=== PATIENT | male | born 1940 | race Caucasian/White ===

== ENCOUNTER → 2017-09-07 | Outpatient (CLI) | payer MEDICARE ==
[~2017-09-07] MED LIST: ASPI81 PO; ASPI81TA23 PO; BYST2.5T2 PO; CARD4TAB2 PO; FINA5TAB2 PO; LOSA100T PO; LOSA25TA31 PO; NEBI20 PO; OMEP20CA5 PO; OMEP20TA93 PO; TAMS0.4C4 PO
[2017-09-07 11:03] LABS: HEMATOCRIT 46.5 % (39.0-51.0); MEAN CELL VOLUME 82.2 FL (80.0-100.0); MEAN CORPUSCULAR HEMOGLOBIN 26.6 PG (27.0-34.0); MEAN CORPUSCULAR HGB CONC 32.4 % (32.0-36.0); MEAN PLATELET VOLUME 10.7 FL (7.0-11.0); PLATELET COUNT 170 TH/MM3 (150-450); RED BLOOD COUNT 5.65 MIL/MM3 (4.50-5.90); RED CELL DISTRIBUTION WIDTH 14.3 % (11.6-17.2); WHITE BLOOD COUNT 7.8 TH/MM3 (4.0-11.0)
[2017-09-07 11:14] LABS: PROTHROMBIN TIME - PATIENT 9.9 SEC (9.8-11.6)
[2017-09-07 11:31] LABS: BICARBONATE 28.8 MEQ/L (21.0-32.0); CREATININE 1.33 MG/DL (0.60-1.30)
--- NOTE | 2017-09-07 17:59 | EKG ---
Date Performed: 09/07/2017 Time Performed: 10:20:32 PTAGE: 77 years EKG: SINUS BRADYCARDIA RIGHT BUNDLE BRANCH BLOCK ABNORMAL ECG Since the previous tracing, no sig nificant change noted NO PREVIOUS TRACING DOCTOR: Madisyn Ritter Interpretating Date/Time 09/07/2017 17:57:41
== END ==
LOC: CPRE 09:43
PROVIDERS: ATTEND Internal Medicine
DX: Z01.812 Encounter for preprocedural laboratory examination (principal); Z01.810 Encounter for preprocedural cardiovascular examination; R91.1 Solitary pulmonary nodule; R00.1 Bradycardia, unspecified; I45.10 Unspecified right bundle-branch block
CPT/HCPCS: 36415; 80048; 85027; 85610; 85730; 93005

== ENCOUNTER 2017-09-11 12:33 | Day surgery (SDC) | payer MEDICARE ==
[~2017-09-11] VITALS: Ht 170.2 cm; Wt 90.9 kg
--- NOTE | 2017-09-11 09:20 | MB ---
cc: Rachid Harding MD DATE: 09/11/2017 HISTORY OF PRESENT ILLNESS: Mr. Lepe is a 77-year-old white male whom I saw recently with intermittent wheezing and a left lower lobe infiltrate, possibly associated with an endobronchial lesion. He is being scheduled for bronchoscopy for evaluation of this abnormality. The patient's only complaint is intermittent wheezing and an occasional cough. He had a similar-appearing chest x-ray about 2 years ago, but was lost to followup. Since that time, he has not had any interval respiratory illness. No fever, no hemoptysis, no weight loss. He was a former smoker of about 20 pack years, but quit in the 1960s. PAST MEDICAL HISTORY: Hypertension, BPH, reflux disease, diabetes and an abdominal aortic aneurysm. PAST SURGICAL HISTORY: He has had a distant vasectomy. ALLERGIES: VINNIE INHIBITORS, DEPAKOTE AND THE FLU SHOT. MEDICATIONS: 1. Losartan. 2. Bystolic. 3. Omeprazole. 4. Finasteride. 5. Tamsulosin. 6. A baby aspirin, which was held on his last appointment in early August. FAMILY HISTORY: Strong history on father's side. Mother in her 90s, probably of heart disease. Three daughters in good health. SOCIAL HISTORY: The patient was born in [facility]. He moved to this country at the age of 5; lived most of his life in [place]. He has been in this area now for about 10 years. He is a retired immigration officer. Smoking as noted above. No excessive alcohol use. REVIEW OF SYSTEMS: Other than that noted above, no musculoskeletal complaints. No persistent fever. No chronic edema. No significant dyspnea. PHYSICAL EXAMINATION: VITAL SIGNS: 98 degrees, 120/70, pulse 60, RR 18, saturation 97% on room air. HEENT: Sclerae are anicteric. Pharynx is clear. NECK: Neck veins are flat. LYMPH: No adenopathy in the neck, supraclavicular region. CHEST: No audible wheezing or congestion, regular rhythm. No harsh murmur. EXTREMITIES: No peripheral edema or cyanosis. DISCUSSION: Mr. Lepe presents with a persistent abnormality of the left base with a possible endobronchial lesion noted. We will proceed with diagnostic bronchoscopy for further evaluation. I have explained to the patient the procedure in simple terms so that he understands what it involves. We have also discussed possible complications including although not limited to anesthetic complications, bleeding, or pneumothorax. He is agreeable to proceed. Aspirin has been held. Further diagnostic and/or therapeutic intervention will depend on results of this initial diagnostic study. R. MD HERBERT Aguilera/NICOLAS , 09:02 AM , 09:20 AM
[~2017-09-11 12:33] MED LIST changes: -ASPI81 PO; -BYST2.5T2 PO; -CARD4TAB2 PO; -LOSA25TA31 PO; -OMEP20CA5 PO
[2017-09-11 12:55] VITALS: BP 157/72; PULSE 49; RESP 18; TEMP 98.3; O2SAT 98
[2017-09-11] MEDS ORDERED: CHLORHEXIDINE GLUCONATE 2 % 1 PACK (2 CLOTHS) TOPICAL PRN (13:45)
[2017-09-11] MEDS ORDERED: METOPROLOL TARTRATE 25 MG TAB PO PRN (13:45)
[2017-09-11] MEDS ORDERED: INSULIN HUMAN REGULAR 1,000 UNITS/10 ML VIAL SQ PRN (13:45)
[2017-09-11] MEDS ORDERED: RESP: ALBUTEROL 2.5 MG/3 ML NEB (SCH) INH (13:45)
[2017-09-11] MEDS ORDERED: SODIUM CHLORID 0.9% 500 ML IV PRN (13:45)
[2017-09-11] MEDS ORDERED: SODIUM CHLORIDE 0.9% INJ 100 ML IV SCH (13:45)
[2017-09-11] MEDS ORDERED: POVIDONE IODINE 5% (ANTISEPSIS KIT) 4 APPLICATIONS EACH NARE PRN (13:45)
[2017-09-11] MEDS ORDERED: LACTATED RINGER'S 1000 ML IV PRN (13:45)
[2017-09-11] MEDS ORDERED: RESP: LIDOCAINE HCL 4% PF 5 ML NEB NEB SCH (13:45)
[2017-09-11] MEDS ORDERED: RESP: ALBUTEROL CONC 2.5 MG/0.5 ML NEB ONE (15:35)
[2017-09-11] MEDS ORDERED: SUGAMMADEX SODIUM 200 MG/2 ML VIAL IV PUSH ONE ×2 (16:23→16:27)
[2017-09-11] MEDS ORDERED: RESP: ALBUTEROL 2.5 MG/3 ML NEB (PRN) NEB (16:30)
[2017-09-11] MEDS ORDERED: *RESP: ALBUTEROL 2.5 MG/3 ML NEB (PRN) PERIprocedural Use ONLY NEB ONE (16:45)
--- NOTE | 2017-09-11 16:46 | MR ---
cc: Rachid Harding MD DATE: 09/11/2017 PROCEDURE PERFORMED: Bronchoscopy. INDICATION FOR PROCEDURE: Possible endobronchial lesion in the left lower lobe. DESCRIPTION OF PROCEDURE: After informed consent was obtained, the patient underwent diagnostic bronchoscopy with general anesthesia. Examination of the mid to distal trachea was normal. Examination of the right main stem bronchus, right upper, middle, and lower lobes was entirely unremarkable. Examination of the left main stem bronchus down to the takeoff of the left upper lobe was normal. Left upper lobe was also normal, lingula and upper lobe segments. Examination of the proximal left lower lobe was normal, but at the takeoff of the left lower lobe superior segment, there was a smooth shiny ball valve type of mass that was mobile with its stalk at the base of the superior segment takeoff. Left lower lobes were a little narrow below that, but no endobronchial pathology was noted. The area was washed extensively, submitted for cultures and cytology. A brushing was then obtained with minimal bleeding. Dilute adrenaline solution and some iced saline was infused over this lesion and then a single biopsy was obtained. No brisk bleeding, but there was continual oozing after the single biopsy. Additional diluted adrenaline solution and iced saline was infused over the mass and bleeding was controlled. At the end of the procedure, there was no active bleeding. In summary, he has a pedunculated, round, smooth, partially obstructing mass in the superior segment of the left lower lobe. Visually, I suspect it may be a carcinoid. He tolerated the procedure well, without apparent complication, is being prepared to go to recovery. Specimens are submitted for culture, cytology and routine histology on the biopsy. Rachid Harding MD RSW/KD , 04:30 PM , 04:46 PM
[2017-09-11] MEDS ORDERED: DO NOT ADM ANY ANTICOAGULANT DRUGS PRN (17:00)
[2017-09-11 17:15] VITALS: BP 147/76; PULSE 65; RESP 18; TEMP 97.3; O2SAT 92
[2017-09-11 17:25] VITALS: BP 119/71; PULSE 68; RESP 18; O2SAT 92
== END 2017-09-11 18:19 | disposition home or self-care (01) ==
LOC: HROP 12:33 → HRIP 12:36 → HROP 18:19
PROVIDERS: ATTEND Internal Medicine
DX: C7A.090 Malignant carcinoid tumor of the bronchus and lung (principal); I10 Essential (primary) hypertension; N40.0 Benign prostatic hyperplasia without lower urinary tract symptoms; E11.9 Type 2 diabetes mellitus without complications; K21.9 Gastro-esophageal reflux disease without esophagitis; I71.4 Abdominal aortic aneurysm, without rupture
CPT/HCPCS: 00520; 31625; 87015; 87070; 87102; 87116; 87205; 87206; 88112; 88305; 88341; 88342; 94640; 94664; J3010; J7611; J7613; 88307

== ENCOUNTER → 2017-10-01 | Outpatient (CLI) | payer MEDICARE ==
[2017-10-01 12:47] LABS: HEMATOCRIT 45.4 % (39.0-51.0); HEMOGLOBIN 14.8 GM/DL (13.0-17.0); MEAN CELL VOLUME 82.7 FL (80.0-100.0); MEAN CORPUSCULAR HGB CONC 32.6 % (32.0-36.0); MEAN PLATELET VOLUME 9.2 FL (7.0-11.0); PLATELET COUNT 194 TH/MM3 (150-450); RED BLOOD COUNT 5.48 MIL/MM3 (4.50-5.90); RED CELL DISTRIBUTION WIDTH 14.2 % (11.6-17.2); WHITE BLOOD COUNT 8.8 TH/MM3 (4.0-11.0)
[2017-10-01 12:56] LABS: BILIRUBIN, URINE NEG (NEG); BLOOD, URINE NEG (NEG); GLUCOSE,URINE NEG (NEG); KETONE, URINE NEG (NEG); MUCUS URINE FEW /lpf (OCC); NITRITE,URINE NEG (NEG); SQUAMOUS EPITHELIAL CELL URINE <1 /hpf (0-5); URINE COLOR YELLOW (YELLW/STRAW); URINE LEUKOCYTE ESTERASE NEG (NEG)
[2017-10-01 12:59] LABS: PROTHROMBIN TIME - PATIENT 9.7 SEC (9.8-11.6)
[2017-10-01 13:57] LABS: BICARBONATE 27.6 MEQ/L (21.0-32.0); CALCIUM 8.9 MG/DL (8.5-10.1); CREATININE 1.28 MG/DL (0.60-1.30)
--- NOTE | 2017-10-01 23:22 | EKG ---
Date Performed: 10/01/2017 Time Performed: 12:38:50 PTAGE: 77 years EKG: SINUS BRADYCARDIA WITH OCCASIONAL VENTRICULAR PREMATURE COMPLEXES RIGHT BUNDLE BRANCH BLOCK ABNORMAL ECG NO PREVIOUS TRACING DOCTOR: Niall Mcgee Interpretating Date/Time 10/01/2017 23:06:51
== END ==
LOC: CPRE 12:11
PROVIDERS: ATTEND Thoracic Surgery (Cardiothoracic Vascular Surgery)
DX: D3A.090 Benign carcinoid tumor of the bronchus and lung (principal); Z01.812 Encounter for preprocedural laboratory examination; Z01.810 Encounter for preprocedural cardiovascular examination; I45.10 Unspecified right bundle-branch block
CPT/HCPCS: 36415; 80048; 81001; 85027; 85610; 85730; 93005

== ENCOUNTER 2017-10-05 05:06 | Inpatient (IN) | payer MEDICARE ==
[~2017-10-05] VITALS: Ht 170.2 cm; Wt 96.5 kg
[2017-10-05] VITALS (11 sets, daily range): BP systolic 109–138; BP diastolic 59–72; PULSE 61–83; RESP 18–20; TEMP 98–98.7; O2SAT 94–98
[2017-10-05] MEDS ORDERED: METOPROLOL TARTRATE 25 MG TAB PO PRN (05:30)
[2017-10-05] MEDS ORDERED: POVIDONE IODINE 5% (ANTISEPSIS KIT) 4 APPLICATIONS EACH NARE PRN (05:30)
[2017-10-05] MEDS ORDERED: SODIUM CHLORID 0.9% 500 ML IV PRN (05:30)
[2017-10-05] MEDS ORDERED: LACTATED RINGER'S 1000 ML IV PRN (05:30)
[2017-10-05] MEDS ORDERED: CHLORHEXIDINE GLUCONATE 2 % 1 PACK (2 CLOTHS) TOPICAL PRN (05:30)
[2017-10-05] MEDS ORDERED: ceFAZolin 2 GM PREMIX 50 ML ONE ×2 (06:43→11:07)
[2017-10-05] MEDS ORDERED: BUPIVACAINE LIPOSO PF 1.3% INJ 20 ML, DEXAMETHASONE INJ 4 MG, MORPHINE INJ 8 MG in SODI... IRRIGATION ONE (07:00)
[2017-10-05] MEDS ORDERED: GLYCOPYRROLATE 1 MG/5 ML SYRINGE IV PUSH ONE (10:10)
[2017-10-05] MEDS ORDERED: PHENYLEPHRINE HCL 10 MG/ML VIAL IV ONE (10:10)
[2017-10-05] MEDS ORDERED: NEOSTIGMINE 5 MG/5 ML SYRINGE IV PUSH ONE (10:10)
[2017-10-05] MEDS ORDERED: LACTATED RINGER'S 1000 ML INJ 1,000 ML IV ONE (10:10)
[2017-10-05] MEDS ORDERED: ONDANSETRON HCL 4 MG/2 ML VIAL IV PUSH ONE (10:10)
[2017-10-05] MEDS ORDERED: LIDOCAINE HCL 1% PF 5 ML SYRINGE OTHER ONE (10:10)
[2017-10-05] MEDS ORDERED: ePHEDrine/NS 25 MG/5 ML SYRINGE IV ONE (10:10)
[2017-10-05] MEDS ORDERED: PHENYLEPH/NS 1000 MCG/10 ML SYR IV ONE (10:10)
[2017-10-05] MEDS ORDERED: ROCURONIUM INJ 50 MG/5 ML SYRINGE IV PUSH ONE (10:10)
[2017-10-05] MEDS ORDERED: PROPOFOL 200 MG/20 ML AMP IV ONE (10:10)
[2017-10-05] MEDS ORDERED: DEXAMETHASONE SOD PHOS 4 MG/ML VIAL IV ONE (10:10)
[2017-10-05] MEDS ORDERED: SODIUM CHLORIDE 0.9% 10 ML VIAL IV ONE (10:10)
[2017-10-05] MEDS ORDERED: STERILE WATER FOR INJECTION 20 ML VIAL IV ONE (10:10)
[2017-10-05] MEDS ORDERED: SODIUM CHLORIDE 0.9% FLUSH 10 ML FLUSH IV FLUSH PRN (11:15)
[2017-10-05] MEDS ORDERED: MORPHINE SULFATE 30 MG/30 ML PCA IV SCH (11:15)
[2017-10-05] MEDS ORDERED: Post-op Orders (for Pharmacy) OTHER ONE (11:15)
[2017-10-05] MEDS ORDERED: NALOXONE HCL 0.4 MG/ML AMP IV PUSH PRN (11:15)
[2017-10-05] MEDS ORDERED: MAGNESIUM HYDROXIDE SUSP 30 ML CUP PO PRN (11:15)
[2017-10-05] MEDS ORDERED: RESP: ALBUTEROL 2.5 MG/3 ML NEB (PRN) NEB (11:15)
[2017-10-05] MEDS ORDERED: ACETAMINOPHEN 325 MG TAB PO PRN (11:15)
--- NOTE | 2017-10-05 11:35 | PD.OP ---
cc: Karen Kitchen MD; Van Whitney MD; Rachid Harding MD Operative Report Date of Surgery: Oct 05, 2017 Preoperative Diagnosis: Postoperative Diagnosis: Procedure: 1. Left Posterolateral Muscle Sparing Thoracotomy 2. Left Lower Lobectomy 3. Mediastinal Lymph Node Dissection 4. Intercostal Nerve Block 5. Fiberoptic Bronchoscopy Surgeon: Van Whitney Public Aid Eligibility Assistant(s): Ellen Villanueva Operation and Findings: PREOPERATIVE DIAGNOSIS 1. Left Lower Lobe Lung Carcinoid 2. COPD 3. Nicotine use POSTOPERATIVE DIAGNOSIS same PROCEDURES 1. Left Posterolateral Muscle Sparing Thoracotomy 2. Left Lower Lobectomy 3. Mediastinal Lymph Node Dissection 4. Intercostal Nerve Block 5. Fiberoptic Bronchoscopy SURGEON Van Whitney MD MANUFACTURE SPECIALIST EARLENE So ANESTHESIA General double-lumen endotracheal. NUMERICAL CONTROL OPERATOR DRU Quick MD DRAINS [address] COUNTS Needle, sponge, and instrument counts were correct. COMPLICATIONS None. INDICATION FOR PROCEDURE The patient is a 77 yo gentleman with LLL obstructive carcinoid and infiltrate, presenting for surgical resection of above pathology. DESCRIPTION OF PROCEDURE The patient was brought to the operating suite and placed in supine position. Following satisfactory induction of general double-lumen endotracheal anesthesia , the patient was placed in the right lateral decubitus position. Fiberoptic bronchoscopy was performed. The right tracheobronchial tree was clean. The left upper lobe bronchus had a lot of mucinous secretions. The lower lobe bronchus was occluded just beyond the takeoff. A free floating tissue plug was identified in the upper lobe bronchus which was sent for histological analysis. The left chest and surrounding area was then prepped and draped in the usual sterile fashion. A standard muscle-sparing posterolateral thoracotomy was performed and the serratus anterior muscle spared. The pleural space was entered. Exploration of the chest revealed a non-existent fissure with dense inflammation of the hilum. The pulmonary arterial supply to the lower lobe was identified, dissected free and divided as was the pulmonary venous supply. The bronchus was then dissected free, clamped and the remaining lung was insufflated without any difficulty. Lymph node dissections of level 8, 9, 10 and 11 were performed along with the course of this removal. Some of these were retained with the specimen. Specimen was removed from the chest. The remaining lung was submerged under sterile water and inflated. No air leaks were identified. Frozen section on the free floating tissue was consistent with Carcinoid tumor. Again, this was unattached and likely migrated to the upper lobe bronchus. Furthermore, the bronchial margin on the specimen side was positive for tumor. Repeat bronchoscopy revealed a bronchial stump that was flush with the mainstem bronchus with no room for additional resection. After due consideration, I did not think that he would do well with a complete pneumonectomy and, therefore, plans were made to stop at this point. The closure was undertaken. A 28-Colombian chest tube was placed. Intercostal nerve block was performed at the level of the incision and 3 rib spaces above and below using Exparel with Decadron solution. The pericostal space was approximated with interrupted #1 Vicryl sutures in a pericostal fashion. The serratus fascia and Latissimus dorsi were closed with running 0-Vicryl and the remaining wounds closed with 3-0, and 4-0 Monocryl. The patient tolerated the procedure well and postoperatively went to the PACU in stable condition. Van Whitney MD Oct 05, 2017 11:35
[2017-10-05] MEDS ORDERED: DO NOT ADM ANY ANTICOAGULANT DRUGS PRN (11:40)
[2017-10-05] MEDS ORDERED: MORPHINE SULFATE 4 MG/ML INJ ONE (11:55)
[2017-10-05] MEDS ORDERED: MIDAZOLAM HCL 2 MG/2 ML VIAL ONE (11:55)
--- NOTE | 2017-10-05 12:09 | RADRPT ---
EXAM DATE: 10/05/2017 12:05 PM EDT AGE/SEX: 77 years / Male INDICATIONS: Post left lobectomy. CLINICAL DATA: This is the patient's initial encounter. Patient reports that signs and symptoms have been present for 1 day and indicates a pain score of Nonresponsive. MEDICAL/SURGICAL HISTORY: None. None. COMPARISON: No prior exams available for comparison. FINDINGS: There is a left-sided chest tube. No pneumothorax is seen. The heart size is enlarged. Clips are seen over the left hilum. The lungs appear grossly clear. CONCLUSION: Left chest tube without evidence of left pneumothorax. Electronically signed by: Stepan Ovalle MD 10/05/2017 12:08 PM EDT
[2017-10-05] MEDS ORDERED: ONDANSETRON ODT 4 MG TAB PO PRN (12:30)
[2017-10-05] MEDS ORDERED: LACTATED RINGER'S 1000 ML INJ 1,000 ML IV SCH (14:00)
[2017-10-05] MEDS: PCA - TOTAL MG MORPHINE DELIVERED PER SHIFT SCH ×2 (14:00→22:30)
[2017-10-05] MEDS: RESP: ALBUTEROL 2.5 MG/3 ML NEB (SCH) NEB ×2 (15:18→22:11)
[2017-10-05] MEDS: KETOROLAC TROMETHAMINE 30 MG/ML (IVP) VIAL IV PUSH SCH ×3 (15:35→22:30)
[2017-10-05] MEDS: ACETAMINOPHEN 1000 MG/100 ML 100 ML IV SCH ×2 (16:43→21:17)
[2017-10-05] MEDS: DOCUSATE CALCIUM 240 MG CAP PO SCH (21:00)
[2017-10-05] MEDS: SODIUM CHLORIDE 0.9% FLUSH 10 ML FLUSH IV FLUSH SCH (21:18)
[2017-10-05] MEDS: TAMSULOSIN HCL 0.4 MG CAP PO SCH (21:19)
[2017-10-05] MEDS: LOSARTAN 50 MG TAB PO SCH (21:21)
[2017-10-05] MEDS: FINASTERIDE 5 MG TAB PO SCH (21:21)
[2017-10-05] MEDS: PANTOPRAZOLE SOD 40 MG DELAYED RELEASE TAB PO SCH (21:21)
[2017-10-06] VITALS (27 sets, daily range): BP systolic 108–168; BP diastolic 59–80; PULSE 49–88; RESP 16–22; TEMP 97.7–98.4; O2SAT 95–99
[2017-10-06] MEDS: ACETAMINOPHEN 1000 MG/100 ML 100 ML IV SCH ×2 (02:22→08:57)
[2017-10-06] MEDS: RESP: ALBUTEROL 2.5 MG/3 ML NEB (SCH) NEB ×4 (03:52→20:45)
--- NOTE | 2017-10-06 04:07 | RADRPT ---
EXAM DATE: 10/06/2017 3:56 AM EDT AGE/SEX: 77 years / Male INDICATIONS: Shortness of breath, possible pneumothorax. CLINICAL DATA: This is the patient's subsequent encounter. Patient reports that signs and symptoms h ave been present for 2 days and indicates a pain score of 7/10. MEDICAL/SURGICAL HISTORY: None. Lobectomy. COMPARISON: [facility] [place], CHEST SINGLE AP, 10/05/2017. . FINDINGS: A single AP erect view of the chest was obtained and again demonstrates a left-sided chest tube in pl [facility]ney with no pneumothorax. There is a small amount of subcutaneous emphysema over the left lateral [address] st wall. The heart size is at the upper limits of normal with no perihilar edema. The right lung is c lear. There are multiple overlying electrocardiogram leads. The bony thorax is unremarkable. CONCLUSION: The left-sided chest tube remains in place with no pneumothorax. Electronically signed by: Carlos Alberto Vanessa MD 10/06/2017 4:05 AM EDT
[2017-10-06 04:11] LABS: AUTOMATED NEUTROPHIL # 11.1 TH/MM3 (1.8-7.7); BASOPHIL # 0.1 TH/MM3 (0-0.2); BASOPHIL % 0.7 % (0.0-2.0); HEMATOCRIT 41.7 % (39.0-51.0); HEMOGLOBIN 13.5 GM/DL (13.0-17.0); LYMPHOCYTE # 1.1 TH/MM3 (1.0-4.8); MEAN CELL VOLUME 82.4 FL (80.0-100.0); MEAN CORPUSCULAR HEMOGLOBIN 26.6 PG (27.0-34.0); MEAN CORPUSCULAR HGB CONC 32.3 % (32.0-36.0); MEAN PLATELET VOLUME 9.7 FL (7.0-11.0); MONO % 11.6 % (0.0-8.0); MONOCYTE # 1.6 TH/MM3 (0-0.9); NEUT % 79.7 % (16.0-70.0); PLATELET COUNT 189 TH/MM3 (150-450); RED BLOOD COUNT 5.06 MIL/MM3 (4.50-5.90); RED CELL DISTRIBUTION WIDTH 14.3 % (11.6-17.2); WHITE BLOOD COUNT 13.9 TH/MM3 (4.0-11.0)
[2017-10-06 04:33] LABS: BICARBONATE 21.4 MEQ/L (21.0-32.0); CALCIUM 8.2 MG/DL (8.5-10.1)
[2017-10-06 04:34] LABS: CREATININE 1.61 MG/DL (0.60-1.30)
[2017-10-06] MEDS: PCA - TOTAL MG MORPHINE DELIVERED PER SHIFT SCH (06:00)
[2017-10-06] MEDS: KETOROLAC TROMETHAMINE 30 MG/ML (IVP) VIAL IV PUSH SCH (08:58)
[2017-10-06] MEDS: NEBIVOLOL 10 MG TAB PO SCH (08:59)
[2017-10-06] MEDS: SODIUM CHLORIDE 0.9% FLUSH 10 ML FLUSH IV FLUSH SCH ×2 (09:00→20:31)
--- NOTE | 2017-10-06 10:47 | PD.CAR.PN ---
CVT Progress Note Subjective/Hospital Course: 77 yo with LLL consolidation and infiltrate. Followed with serial exams with persistence. Bx c/w Carcinoid 10/05 Procedure 1. Left Posterolateral Muscle Sparing Thoracotomy 2. Left Lower Lobectomy 3. Mediastinal Lymph Node Dissection 4. Intercostal Nerve Block 5. Fiberoptic Bronchoscopy 10/06 Doing well No complaints Likely D/C CT tomorrow Pathology pending Objective: Vital Signs Date Time Temp Pulse Resp B/P (MAP) Pulse Ox O2 Delivery O2 Flow Rate FiO2 10/06/17 10:00 56 10/06/17 10:00 98 21 10/06/17 09:00 72 10/06/17 08:32 97.8 63 16 138/61 (86) 99 10/06/17 07:00 61 10/06/17 06:44 63 10/06/17 06:00 20 10/06/17 05:50 62 10/06/17 04:34 56 10/06/17 03:56 98.3 81 20 108/63 (78) 96 10/06/17 03:56 58 10/06/17 02:01 88 10/06/17 01:07 75 10/06/17 00:00 70 10/05/17 23:50 82 10/05/17 23:50 98.3 83 19 109/63 (78) 95 10/05/17 22:30 19 10/05/17 22:11 98 Nasal Cannula 2.00 10/05/17 22:00 82 10/05/17 21:00 98.7 77 19 116/70 (85) 98 10/05/17 21:00 78 10/05/17 18:02 66 20 116/59 (78) 96 10/05/17 17:13 98.0 65 18 115/72 (86) 94 10/05/17 16:35 18 10/05/17 16:00 66 18 138/70 (92) 94 10/05/17 15:20 98 Nasal Cannula 3.00 10/05/17 15:00 66 18 118/61 (80) 94 10/05/17 14:00 62 20 135/70 (91) 96 10/05/17 13:00 65 10/05/17 13:00 98.0 61 18 127/72 (90) 98 10/05/17 12:30 98.5 58 12 129/73 (91) 99 Nasal Cannula 2 10/05/17 12:15 58 15 120/68 (85) 99 10/05/17 12:03 12 10/05/17 12:00 58 11 121/65 (83) 100 10/05/17 11:45 98.5 67 28 98/55 (69) 99 Nasal Cannula 3 Labs: Laboratory Tests Test 10/06/17 03:37 White Blood Count 13.9 TH/MM3 (4.0-11.0) Red Blood Count 5.06 MIL/MM3 (4.50-5.90) Hemoglobin 13.5 GM/DL (13.0-17.0) Hematocrit 41.7 % (39.0-51.0) Mean Corpuscular Volume 82.4 FL (80.0-100.0) Mean Corpuscular Hemoglobin 26.6 PG (27.0-34.0) Mean Corpuscular Hemoglobin Concent 32.3 % (32.0-36.0) Red Cell Distribution Width 14.3 % (11.6-17.2) Platelet Count 189 TH/MM3 (150-450) Mean Platelet Volume 9.7 FL (7.0-11.0) Neutrophils (%) (Auto) 79.7 % (16.0-70.0) Lymphocytes (%) (Auto) 8.0 % (9.0-44.0) Monocytes (%) (Auto) 11.6 % (0.0-8.0) Eosinophils (%) (Auto) 0.0 % (0.0-4.0) Basophils (%) (Auto) 0.7 % (0.0-2.0) Neutrophils # (Auto) 11.1 TH/MM3 (1.8-7.7) Lymphocytes # (Auto) 1.1 TH/MM3 (1.0-4.8) Monocytes # (Auto) 1.6 TH/MM3 (0-0.9) Eosinophils # (Auto) 0.0 TH/MM3 (0-0.4) Basophils # (Auto) 0.1 TH/MM3 (0-0.2) CBC Comment DIFF FINAL Differential Comment Blood Urea Nitrogen 23 MG/DL (7-18) Creatinine 1.61 MG/DL (0.60-1.30) Random Glucose 164 MG/DL (74-106) Calcium Level 8.2 MG/DL (8.5-10.1) Sodium Level 135 MEQ/L (136-145) Potassium Level 4.1 MEQ/L (3.5-5.1) Chloride Level 102 MEQ/L (98-107) Carbon Dioxide Level 21.4 MEQ/L (21.0-32.0) Anion Gap 12 MEQ/L (5-15) Estimat Glomerular Filtration Rate 42 ML/MIN (>89) Result Diagram: 10/06/17 0337 10/06/17 0337 Van Whitney MD Oct 06, 2017 10:47
[2017-10-06] MEDS: ACETAMINOPHEN/HYDROcodone 325 MG/5 MG TAB PO PRN (12:30)
[2017-10-06] MEDS: FINASTERIDE 5 MG TAB PO SCH (20:30)
[2017-10-06] MEDS: DOCUSATE CALCIUM 240 MG CAP PO SCH (20:30)
[2017-10-06] MEDS: TAMSULOSIN HCL 0.4 MG CAP PO SCH (20:30)
[2017-10-06] MEDS: PANTOPRAZOLE SOD 40 MG DELAYED RELEASE TAB PO SCH (20:30)
[2017-10-06] MEDS: LOSARTAN 50 MG TAB PO SCH (20:31)
[2017-10-07] VITALS (29 sets, daily range): BP systolic 129–163; BP diastolic 71–77; PULSE 54–76; RESP 19–20; TEMP 97.9–98.2; O2SAT 96–98
[2017-10-07] MEDS: RESP: ALBUTEROL 2.5 MG/3 ML NEB (SCH) NEB ×4 (04:16→21:28)
[2017-10-07] MEDS: NEBIVOLOL 10 MG TAB PO SCH (07:48)
[2017-10-07] MEDS: SODIUM CHLORIDE 0.9% FLUSH 10 ML FLUSH IV FLUSH SCH ×2 (07:49→20:46)
[2017-10-07] MEDS: ACETAMINOPHEN/HYDROcodone 325 MG/5 MG TAB PO PRN ×5 (08:07→20:45)
--- NOTE | 2017-10-07 09:41 | PD.CAR.PN ---
CVT Progress Note Subjective/Hospital Course: 77 yo with LLL consolidation and infiltrate. Followed with serial exams with persistence. Bx c/w Carcinoid 10/05 Procedure 1. Left Posterolateral Muscle Sparing Thoracotomy 2. Left Lower Lobectomy 3. Mediastinal Lymph Node Dissection 4. Intercostal Nerve Block 5. Fiberoptic Bronchoscopy 10/06 Doing well No complaints Likely D/C CT tomorrow Pathology pending 10/07 Doing well Urinary retention issues. Does intermittent straight cathing at home D/C CT today Home in am Objective: Vital Signs Date Time Temp Pulse Resp B/P (MAP) Pulse Ox O2 Delivery O2 Flow Rate FiO2 10/07/17 08:41 98 10/07/17 08:00 60 10/07/17 07:45 98.2 65 20 163/75 (104) 97 10/07/17 07:00 67 10/07/17 06:35 55 10/07/17 05:45 59 10/07/17 04:23 56 10/07/17 04:16 98 21 10/07/17 03:50 97.9 65 19 152/77 (102) 98 10/07/17 03:33 56 10/07/17 02:07 56 10/07/17 01:49 55 10/07/17 00:01 61 10/06/17 23:00 63 10/06/17 23:00 98.3 82 22 168/80 (109) 96 10/06/17 22:00 62 10/06/17 21:00 64 10/06/17 20:47 97 21 10/06/17 20:00 67 10/06/17 19:50 98.4 59 21 154/78 (103) 97 10/06/17 19:50 56 10/06/17 18:00 60 10/06/17 17:00 52 10/06/17 16:05 49 10/06/17 15:24 97.7 55 16 147/71 (96) 95 10/06/17 15:00 59 10/06/17 14:02 55 10/06/17 13:00 58 10/06/17 12:00 78 10/06/17 11:32 98.1 64 16 126/59 (81) 98 10/06/17 11:00 75 10/06/17 10:00 56 10/06/17 10:00 98 21 Result Diagram: 10/06/17 0337 10/06/17 0337 (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
[2017-10-07] MEDS: FINASTERIDE 5 MG TAB PO SCH (20:44)
[2017-10-07] MEDS: PANTOPRAZOLE SOD 40 MG DELAYED RELEASE TAB PO SCH (20:44)
[2017-10-07] MEDS: TAMSULOSIN HCL 0.4 MG CAP PO SCH (20:45)
[2017-10-07] MEDS: DOCUSATE CALCIUM 240 MG CAP PO SCH (20:45)
[2017-10-07] MEDS: LOSARTAN 50 MG TAB PO SCH (20:55)
[2017-10-08] VITALS (10 sets, daily range): BP systolic 153–167; BP diastolic 76–84; PULSE 48–74; RESP 18–20; TEMP 98.1–98.5; O2SAT 97–98
[2017-10-08] MEDS: ACETAMINOPHEN/HYDROcodone 325 MG/5 MG TAB PO PRN ×4 (00:12→10:10)
[2017-10-08] MEDS: RESP: ALBUTEROL 2.5 MG/3 ML NEB (SCH) NEB ×2 (03:37→09:49)
[2017-10-08] MEDS: NEBIVOLOL 10 MG TAB PO SCH (08:16)
[2017-10-08] MEDS: SODIUM CHLORIDE 0.9% FLUSH 10 ML FLUSH IV FLUSH SCH (08:18)
[2017-10-08] MEDS ORDERED: DOCU1CAP26 PO (09:03)
[2017-10-08] MEDS ORDERED: HYDR-3516 PO (09:03)
--- NOTE | 2017-10-08 09:05 | HHI.FF ---
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 My clinical findings support the need for the requested home health care services because: Deconditioned w/ increased weakness I certify that my clinical findings support that this patient is homebound because: Post-op weakness Van Whitney MD Oct 08, 2017 09:05
--- NOTE | 2017-10-08 09:07 | HHI.DS ---
Discharge Summary Admission Date Oct 05, 2017 at 05:06 Discharge Date: Oct 08, 2017 Admitting Diagnosis CBC/BMP: 10/06/17 0337 10/06/17 0337 Significant Findings Laboratory Tests Test 10/06/17 03:37 White Blood Count 13.9 TH/MM3 (4.0-11.0) Mean Corpuscular Hemoglobin 26.6 PG (27.0-34.0) Neutrophils (%) (Auto) 79.7 % (16.0-70.0) Lymphocytes (%) (Auto) 8.0 % (9.0-44.0) Monocytes (%) (Auto) 11.6 % (0.0-8.0) Neutrophils # (Auto) 11.1 TH/MM3 (1.8-7.7) Monocytes # (Auto) 1.6 TH/MM3 (0-0.9) Blood Urea Nitrogen 23 MG/DL (7-18) Creatinine 1.61 MG/DL (0.60-1.30) Random Glucose 164 MG/DL (74-106) Calcium Level 8.2 MG/DL (8.5-10.1) Sodium Level 135 MEQ/L (136-145) Estimat Glomerular Filtration Rate 42 ML/MIN (>89) Hospital Course 77 yo with LLL consolidation and infiltrate. Followed with serial exams with persistence. Bx c/w Carcinoid 10/05 Procedure 1. Left Posterolateral Muscle Sparing Thoracotomy 2. Left Lower Lobectomy 3. Mediastinal Lymph Node Dissection 4. Intercostal Nerve Block 5. Fiberoptic Bronchoscopy 10/06 Doing well No complaints Likely D/C CT tomorrow Pathology pending 10/07 Doing well Urinary retention issues. Does intermittent straight cathing at home D/C CT today Home in am 10/08 D/C Home today Pt Condition on Discharge: Good Discharge Disposition: Disch w/ Home Health Serv Discharge Instructions DIET: Follow Instructions for: As Tolerated, No Restrictions Activities you can perform: Full Weight Bearing, Shower Only-No Bath Activities to avoid: Lifting/Bending, Strenuous Activity, Driving Follow up Referrals: Appointment for Follow Up - 2 Weeks with Van Whitney MD PCP Follow-up - 4 Weeks Pulmonology - 4 Weeks with Rachid Harding MD New Medications: Docusate Calcium (Sm Stool Softener) 240 Mg Cap 240 MG PO HS for Constipation for 14 Days, CAP Hydrocodone/Acetaminophen (Hydrocodone-Acetamin 5-325 mg) 5 Mg-325 Mg Tablet 1 TAB PO Q3H PRN for PAIN SCALE 3 TO 5 for 7 Days, #56 TAB Continued Medications: Aspirin DR (Aspirin EC) 81 Mg Tabdr 81 MG PO HS, TAB 0 Refills Finasteride (Finasteride) 5 Mg Tab 5 MG PO HS for Manage Prostate Problems, #30 TAB 0 Refills Do not crush. Losartan (Losartan) 100 Mg Tab 100 MG PO HS for Blood Pressure Management, #30 TAB 0 Refills Nebivolol (Bystolic) 20 Mg Tab 20 MG PO DAILY for Blood Pressure Management, #30 TAB 0 Refills Omeprazole (Omeprazole) 20 Mg Tab 20 MG PO DAILY, #30 TAB 0 Refills Tamsulosin (Tamsulosin) 0.4 Mg Cap 0.4 MG PO HS for Manage Prostate Problems, #30 CAP 0 Refills Van Whitney MD Oct 08, 2017 09:06
== END 2017-10-08 10:11 | disposition home health service (06) | DRG 165 ==
LOC: HSDI 05:06 → EDSTATUS 07:30 → HCPC 12:44
PROVIDERS: ADMIT Thoracic Surgery (Cardiothoracic Vascular Surgery); ATTEND Thoracic Surgery (Cardiothoracic Vascular Surgery)
PROC: 0BB Respiratory System, Excision (ICD-10-PCS; 2017-10-05)
PROC: 07B70ZX Excision of Thorax Lymphatic, Open Approach, Diagnostic (ICD-10-PCS; 2017-10-05)
PROC: 0BJ08ZZ Inspection of Tracheobronchial Tree, Via Natural or Artificial Opening Endoscopic (ICD-10-PCS; 2017-10-05)
PROC: 3E0T3BZ Introduction of Anesthetic Agent into Peripheral Nerves and Plexi, Percutaneous Approach (ICD-10-PCS; 2017-10-05)
PROC: 0BTJ0ZZ Resection of Left Lower Lung Lobe, Open Approach (ICD-10-PCS; principal; 2017-10-05 07:18)
DX: C7A.090 Malignant carcinoid tumor of the bronchus and lung (principal); J44.9 Chronic obstructive pulmonary disease, unspecified; I10 Essential (primary) hypertension; R33.8 Other retention of urine; N40.1 Benign prostatic hyperplasia with lower urinary tract symptoms; Z87.891 Personal history of nicotine dependence
CPT/HCPCS: 71045; 80048; 85025; 86850; 86900; 86901; 88305; 88309; 88331; 94150; 94640; 94664; C9290; J0131; J0690; J1100; J1885; J2250; J2270; J2370; J2405; J2710; J3010; J7120; J7613